=== PATIENT | male | born 1985 | race African-American/Black ===

== ENCOUNTER 2024-02-06 13:29 | Emergency (ER) | payer MEDICAID, OTHER ==
[~2024-02-06] VITALS: Ht 180.3 cm; Wt 88.5 kg
[~2024-02-06 13:29] MED LIST: BENADRYL; IBUPROFEN
[2024-02-06 13:33] VITALS: PULSE 88; O2SAT 99
[2024-02-06 13:40] VITALS: BP 130/89; RESP 16; TEMP 98.9; O2SAT 100
[2024-02-06] MEDS ORDERED: D-ME473S50 PO (14:45)
[2024-02-06] MEDS ORDERED: ALBU18HF2 IH (14:45)
== END 2024-02-06 15:00 | disposition home or self-care (01) ==
LOC: ER 13:41
DX: Z48.00 Encounter for change or removal of nonsurgical wound dressing (principal); J06.9 Acute upper respiratory infection, unspecified; F12.10 Cannabis abuse, uncomplicated; J45.909 Unspecified asthma, uncomplicated
CPT/HCPCS: 71045; 99283

== ENCOUNTER 2024-10-17 19:24 | Emergency (ER) | payer MEDICAID ==
[~2024-10-17] VITALS: Ht 180.3 cm; Wt 88.5 kg
[~2024-10-17 19:24] MED LIST changes: +ALBU18HF2 IH; +D-ME473S50 PO
[2024-10-17 19:57] VITALS: O2SAT 98
[2024-10-17] MEDS: CEFTRIAXONE SODIUM 500MG VIAL IM ONE (22:26)
[2024-10-17] MEDS: DOXYCYCLINE HYCLATE 100MG CAPSULE PO ONE (22:26)
[2024-10-17 22:30] VITALS: BP 132/85; PULSE 69; RESP 18; TEMP 36.5; O2SAT 100
[2024-10-17 22:35] LABS: CLARITY URINE CLEAR (CLEAR); COLOR URINE YELLOW (YELLOW); GLUCOSE URINE NEGATIVE (NEGATIVE); KETONES URINE TRACE (NEGATIVE); PH URINE 6.0 (4.5-8.0); PROTEIN URINE NEGATIVE (NEGATIVE); SPECIFIC GRAVITY URINE 1.032 (1.005-1.030)
[2024-10-17 22:36] LABS: LEUKOCYTE ESTERASE URINE NEGATIVE (NEGATIVE); NITRITE URINE NEGATIVE (NEGATIVE); OCCULT BLOOD URINE NEGATIVE (NEGATIVE); UROBILINOGEN URINE 2.0 E.U./dL (0.2-1.0)
[2024-10-17 22:38] LABS: BACTERIA URINE TRACE; RBC URINE NONE SEEN /hpf (0-2); SQUAMOUS EPITHELIAL CELL URINE RARE /lpf (RARE/1+); WBC URINE 0-2 /hpf (0-2)
== END 2024-10-17 22:34 | disposition home or self-care (01) ==
LOC: ER 19:24
DX: I10 Essential (primary) hypertension (principal); J45.909 Unspecified asthma, uncomplicated; Z11.3 Encounter for screening for infections with a predominantly sexual mode of transmission; F10.90 Alcohol use, unspecified, uncomplicated; F12.90 Cannabis use, unspecified, uncomplicated; Y90.9 Presence of alcohol in blood, level not specified
CPT/HCPCS: 87491; 87591; 81003; 96372; 99283; J0696; Z7610

== ENCOUNTER 2024-11-06 20:55 | Emergency (ER) | payer MEDICAID ==
[~2024-11-06] VITALS: Ht 182.9 cm; Wt 84.0 kg
[2024-11-06 21:03] VITALS: O2SAT 100
[2024-11-06 21:56] LABS: BASOPHILS % 0.7 % (0.0-2.0); EOSINOPHILS % 2.0 % (0.0-5.0); HEMATOCRIT. 39.9 % (42.0-52.0); HEMOGLOBIN. 13.6 g/dL (14.0-18.0); LYMPHOCYTES % 40.2 % (20.0-50.0); MEAN PLATELET VOLUME 8.2 fl (7.4-10.4); MONOCYTES % 5.5 % (2.0-8.0); NEUTROPHILS % 51.6 % (40.0-76.0); PLATELET 222 x1000/uL (130-400); RED BLOOD CELL COUNT 4.30 mill/uL (4.7-6.1); RED CELL DISTRIBUTION WIDTH 14.2 % (11.6-14.6)
[2024-11-06 22:09] LABS: INR 1.0
[2024-11-06 22:12] LABS: CREATININE 0.9 mg/dL (0.6-1.3); UREA NITROGEN BLOOD 10 mg/dL (9-23)
[2024-11-06 22:13] LABS: TROPONIN I HIGH SENSITIVITY 4 ng/L (3.0-53)
[2024-11-06] MEDS ORDERED: KETOROLAC 15MG/ML VIAL IV SCH (23:00)
[2024-11-06 23:08] LABS: ETHANOL BLOOD 146 mg/dL (<10)
[2024-11-06 23:09] LABS: ASPARTATE AMINOTRANSFERASE 24 IU/L (<34); BILIRUBIN DIRECT 0.2 mg/dL (<=3.0); BILIRUBIN TOTAL 0.6 mg/dL (0.1-1.0); PROTEIN TOTAL 7.6 g/dL (6.0-8.3)
[2024-11-07] MEDS ORDERED: IBUP-2029 MT (04:20)
[2024-11-07 04:28] VITALS: TEMP 36.9; O2SAT 97
[2024-11-07 04:33] VITALS: BP 138/95; PULSE 91; RESP 15
[2024-11-07] MEDS: KETOROLAC 15MG/ML VIAL IV SCH (04:33)
== END 2024-11-07 04:40 | disposition home or self-care (01) ==
LOC: ER 20:55
DX: S09.90XA Unspecified injury of head, initial encounter (principal); F17.200 Nicotine dependence, unspecified, uncomplicated; M79.604 Pain in right leg; F12.10 Cannabis abuse, uncomplicated; J45.909 Unspecified asthma, uncomplicated; Z00.00 Encounter for general adult medical examination without abnormal findings; Z79.899 Other long term (current) drug therapy; V13.4XXA Pedal cycle driver injured in collision with car, pick-up truck or van in traffic accident, initial encounter; Y93.55 Activity, bike riding; Y92.89 Other specified places as the place of occurrence of the external cause; Y99.8 Other external cause status
CPT/HCPCS: 80076; 80048; 80320; 85025; 85610; 85730; 84484; 36415; 73590; 70450; 93005; 99285; 96374; J1885; G0480

== ENCOUNTER 2025-02-01 04:16 | Emergency (ER) | payer MEDICAID ==
[~2025-02-01] VITALS: Ht 182.9 cm; Wt 66.0 kg
[~2025-02-01 04:16] MED LIST changes: +IBUP-1455 MT
[2025-02-01 04:21] VITALS: O2SAT 99
[2025-02-01] MEDS: TETRACAINE 0.5% OPHTH DROPS 4ML BOTHEYE ONE (04:45)
[2025-02-01] MEDS: FLUORESCEIN SODIUM 1MG/STRIP BOTHEYE ONE (04:45)
[2025-02-01] MEDS: SODIUM CHLORIDE 0.9% 1,000 ML IV ONE ×2 (06:15→07:39)
[2025-02-01] MEDS ORDERED: OCUFLX EACHEYE (08:49)
[2025-02-01 09:11] VITALS: BP 122/80; PULSE 84; RESP 15; TEMP 36.7; O2SAT 99
== END 2025-02-01 09:48 | disposition home or self-care (01) ==
LOC: ER 04:16
DX: H57.13 Ocular pain, bilateral (principal); H53.8 Other visual disturbances; D57.1 Sickle-cell disease without crisis; J45.909 Unspecified asthma, uncomplicated; Z88.0 Allergy status to penicillin
CPT/HCPCS: 99283; 96360; 96361; J7030

== ENCOUNTER 2025-04-07 16:22 | Emergency (ER) | payer MEDICAID ==
[~2025-04-07] VITALS: Ht 180.3 cm; Wt 84.0 kg
[~2025-04-07 16:22] MED LIST changes: +OCUFLX EACHEYE
[2025-04-07 16:40] VITALS: O2SAT 100
[2025-04-07] MEDS: CEFTRIAXONE SODIUM 500MG VIAL IM ONE (18:25)
[2025-04-07] MEDS ORDERED: DOXY100C5 MT (18:34)
[2025-04-07 18:52] VITALS: BP 130/84; PULSE 88; RESP 15; TEMP 36.7; O2SAT 100
[2025-04-07 19:55] LABS: HEPATITIS A AB IGM NEGATIVE (Negative); HEPATITIS B CORE AB IGM NEGATIVE (Negative)
[2025-04-07 19:56] LABS: HEPATITIS C AB NON REACTIVE (Neg) (Negative)
[2025-04-11 04:07] LABS: CHLAMYDIA TRACHOMATIS NAA Negative (Negative); NEISSERIA GONORRHOEAE NAA Negative (Negative)
== END 2025-04-07 18:53 | disposition home or self-care (01) ==
LOC: ER 16:22
DX: Z11.3 Encounter for screening for infections with a predominantly sexual mode of transmission (principal); D57.1 Sickle-cell disease without crisis; J45.909 Unspecified asthma, uncomplicated; Z88.0 Allergy status to penicillin
CPT/HCPCS: 99283; 86592; 87491; 87529 ×2; 87591; 87340; 36415; 86709; 96372; 86705; J0696